=== PATIENT | male | born 1960 | race Caucasian/White ===

== ENCOUNTER 2016-12-05 22:27 | Emergency (ER) | payer BC ==
[~2016-12-05] VITALS: Ht 172.7 cm; Wt 74.8 kg
[~2016-12-05 22:27] MED LIST: AMLODIPINE BESY10 MG PO; ATIVAN1 MG PO; LEVAQUIN 500 M500 M1 PO; LISINOPRIL10 MG PO; NAPROSYN500 MG PO; PROMETHAZINE-C120 ML PO
[2016-12-05 22:35] VITALS: BP 200/88
[2016-12-05 22:57] LABS: ABSOLUTE NEUTROPHILS 5.7 thou/uL (1.4-8.2); HEMATOCRIT 36.5 % (42.0-52.0); HEMOGLOBIN 13.2 gm/dL (14.0-18.0); LYMPHOCYTES 27.9 % (24.0-44.0); MANUAL DIFF NO; MCHC 36.1 g/dL (28.0-37.0); MCV 88.6 fL (80.0-100.0); MONOCYTES 7.9 % (1.0-8.0); PLATELET COUNT 241 thou/uL (150-400); POLYS 62.2 % (36.0-66.0); RBC 4.12 mil/uL (4.50-6.00); RDW 13.1 % (10.5-14.5); WBC 9.2 thou/uL (4.0-11.0)
[2016-12-05 23:00] LABS: CALCIUM 9.1 mg/dL (8.5-10.1); CREATININE 0.8 mg/dL (0.7-1.3)
[2016-12-05 23:06] LABS: ALBUMIN 4.1 g/dL (3.4-5.0); TOTAL BILIRUBIN 0.3 mg/dL (<0.1-1.0); TOTAL PROTEIN 7.5 g/dL (6.4-8.2)
[2016-12-05 23:09] LABS: PROTIME 9.9 Seconds (9.3-11.4)
[2016-12-05 23:14] LABS: APTT 26.6 Seconds (24.5-32.8)
[2016-12-06 03:12] VITALS: BP 152/84
[2016-12-06] MEDS ORDERED: TUSSIONEX PENN473 ML PO (03:41)
== END 2016-12-06 03:48 | disposition home or self-care (01) ==
LOC: ER 22:27 → EROBS 12-06 02:31
PROVIDERS: Emergency Medicine; Nurse Practitioner Family
DX: J44.9 Chronic obstructive pulmonary disease, unspecified (principal); I10 Essential (primary) hypertension; F17.200 Nicotine dependence, unspecified, uncomplicated; F10.99 Alcohol use, unspecified with unspecified alcohol-induced disorder

== ENCOUNTER 2017-07-02 19:08 | Emergency (ER) | payer BC ==
[~2017-07-02] VITALS: Ht 172.7 cm; Wt 74.8 kg
[~2017-07-02 19:08] MED LIST changes: +TUSSIONEX PENN473 ML PO
[2017-07-02] MEDS ORDERED: NORCO 5-325 TA1 EACH PO (20:03)
== END 2017-07-02 20:22 | disposition home or self-care (01) ==
LOC: ER 19:08
DX: M16.11 Unilateral primary osteoarthritis, right hip (principal); M79.672 Pain in left foot; I10 Essential (primary) hypertension

== ENCOUNTER 2018-10-13 10:41 | Emergency (ER) | payer BC ==
[~2018-10-13] VITALS: Ht 172.7 cm; Wt 74.8 kg
[~2018-10-13 10:41] MED LIST changes: +NORCO 5-325 TA1 EACH PO
[2018-10-13] MEDS ORDERED: BACTRIM DS TAB1 EACH PO (11:13)
[2018-10-13] MEDS ORDERED: AMOXICILLIN 50500 MG PO (11:13)
[2018-10-13] MEDS ORDERED: NEOMYC-POLYM-DEX5 ML OPHTHALMIC (11:20)
[2018-10-13 11:25] VITALS: BP 169/88
== END 2018-10-13 11:25 | disposition home or self-care (01) ==
LOC: ER 10:41
DX: L03.213 Periorbital cellulitis (principal); H00.015 Hordeolum externum left lower eyelid; I10 Essential (primary) hypertension; F17.210 Nicotine dependence, cigarettes, uncomplicated

== ENCOUNTER 2020-04-13 13:15 | Emergency (ER) | payer OTHER ==
[~2020-04-13] VITALS: Ht 172.7 cm; Wt 83.9 kg
[~2020-04-13 13:15] MED LIST changes: +AMOXICILLIN 50500 MG PO; +BACTRIM DS TAB1 EACH PO; +NEOMYC-POLYM-DEX5 ML OPHTHALMIC
[2020-04-13] MEDS ORDERED: CLOPIDOGREL75 MG PO (14:07)
[2020-04-13] MEDS ORDERED: CHILDREN'S ASPI81 M1 PO (14:08)
[2020-04-13 15:36] VITALS: BP 133/65
== END 2020-04-13 15:36 | disposition home or self-care (01) ==
LOC: ER 13:15
DX: S61.411A Laceration without foreign body of right hand, initial encounter (principal); I10 Essential (primary) hypertension; F17.210 Nicotine dependence, cigarettes, uncomplicated; Z79.899 Other long term (current) drug therapy; Z79.82 Long term (current) use of aspirin; W25.XXXA Contact with sharp glass, initial encounter; Y93.89 Activity, other specified; Y92.89 Other specified places as the place of occurrence of the external cause; Y99.8 Other external cause status

== ENCOUNTER → 2020-06-12 | Outpatient (CLI) | payer OTHER ==
[~2020-06-12] MED LIST changes: +CHILDREN'S ASPI81 M1 PO; +CLOPIDOGREL75 MG PO; +IBUPROFEN 200200 M1 PO; +LISINOPRIL-HCT1 EAC2 PO; +NORVASC 2.5 MG2.5 M1 PO
== END ==
LOC: HYPER 15:27
PROVIDERS: ATTEND Emergency Medicine
DX: I70.245 Atherosclerosis of native arteries of left leg with ulceration of other part of foot (principal); L97.522 Non-pressure chronic ulcer of other part of left foot with fat layer exposed; I87.311 Chronic venous hypertension (idiopathic) with ulcer of right lower extremity; L97.812 Non-pressure chronic ulcer of other part of right lower leg with fat layer exposed; S80.861D Insect bite (nonvenomous), right lower leg, subsequent encounter; I73.89 Other specified peripheral vascular diseases; Z87.891 Personal history of nicotine dependence; Z96.698 Presence of other orthopedic joint implants; W57.XXXD Bitten or stung by nonvenomous insect and other nonvenomous arthropods, subsequent encounter

== ENCOUNTER → 2020-06-14 | Outpatient (CLI) | payer OTHER | LOC: SJCVCIMAG 13:16 | PROVIDERS: ATTEND Internal Medicine Cardiovascular Disease | DX: I70.203 Unspecified atherosclerosis of native arteries of extremities, bilateral legs (principal); L97.818 Non-pressure chronic ulcer of other part of right lower leg with other specified severity; F17.200 Nicotine dependence, unspecified, uncomplicated; Z95.828 Presence of other vascular implants and grafts ==

== ENCOUNTER → 2020-07-01 | Outpatient (CLI) | payer OTHER ==
[~2020-07-01] VITALS: Ht 172.7 cm; Wt 81.6 kg
[2020-07-01 07:25] VITALS: BP 141/75
[2020-07-01 07:29] LABS: HEMOGLOBIN 13.4 gm/dL (14.0-18.0); MCH 30.4 pg (26.0-34.0); MCHC 35.1 g/dL (28.0-37.0); MCV 86.4 fL (80.0-100.0); RBC 4.4 mil/uL (4.50-6.00); RDW 13.6 % (10.5-14.5)
[2020-07-01 08:09] LABS: CALCIUM 11.2 mg/dL (8.5-10.1); CREATININE 1.2 mg/dL (0.7-1.3)
[2020-07-01 08:16] LABS: POTASSIUM 2.9 mmol/L (3.5-5.1)
== END | disposition home or self-care (01) ==
LOC: CATH 06:47
PROVIDERS: ATTEND Nuclear Medicine Nuclear Cardiology
DX: I70.238 Atherosclerosis of native arteries of right leg with ulceration of other part of lower leg (principal); L97.919 Non-pressure chronic ulcer of unspecified part of right lower leg with unspecified severity; I70.1 Atherosclerosis of renal artery; I10 Essential (primary) hypertension; I25.10 Atherosclerotic heart disease of native coronary artery without angina pectoris; J44.9 Chronic obstructive pulmonary disease, unspecified; K21.9 Gastro-esophageal reflux disease without esophagitis; Z98.890 Other specified postprocedural states; Z79.899 Other long term (current) drug therapy; Z87.891 Personal history of nicotine dependence

== ENCOUNTER → 2020-07-22 | Outpatient (CLI) | payer OTHER | LOC: RAD 15:49 | PROVIDERS: ATTEND Nurse Practitioner | DX: J43.8 Other emphysema (principal) ==

== ENCOUNTER 2021-02-27 12:07 | Emergency (ER) | payer OTHER ==
[~2021-02-27] VITALS: Ht 172.7 cm; Wt 83.9 kg
[2021-02-27 12:15] VITALS: BP 169/81
[2021-02-27] MEDS ORDERED: TRAMADOL 50 MG50 MG PO (12:27)
[2021-02-27] MEDS ORDERED: DOXYCYCLINE 10100 MG PO (12:27)
== END 2021-02-27 12:32 | disposition home or self-care (01) ==
LOC: ER 12:07
DX: L03.116 Cellulitis of left lower limb (principal); M79.605 Pain in left leg; I10 Essential (primary) hypertension; J44.9 Chronic obstructive pulmonary disease, unspecified; I73.9 Peripheral vascular disease, unspecified; K21.9 Gastro-esophageal reflux disease without esophagitis; F17.210 Nicotine dependence, cigarettes, uncomplicated; Z98.890 Other specified postprocedural states; Z79.82 Long term (current) use of aspirin; Z79.1 Long term (current) use of non-steroidal anti-inflammatories (NSAID); Z79.899 Other long term (current) drug therapy

== ENCOUNTER → 2021-03-10 | Outpatient (CLI) | payer OTHER ==
[~2021-03-10] MED LIST changes: +DOXYCYCLINE 10100 MG PO; +TRAMADOL 50 MG50 MG PO
== END ==
LOC: HYPER 09:51
PROVIDERS: ATTEND Emergency Medicine
DX: I70.248 Atherosclerosis of native arteries of left leg with ulceration of other part of lower leg (principal); L97.822 Non-pressure chronic ulcer of other part of left lower leg with fat layer exposed; S81.802A Unspecified open wound, left lower leg, initial encounter; S91.302D Unspecified open wound, left foot, subsequent encounter; I87.2 Venous insufficiency (chronic) (peripheral); I79.8 Other disorders of arteries, arterioles and capillaries in diseases classified elsewhere; Z87.891 Personal history of nicotine dependence; Z96.698 Presence of other orthopedic joint implants; Z79.82 Long term (current) use of aspirin; Z79.899 Other long term (current) drug therapy; W19.XXXA Unspecified fall, initial encounter; W19.XXXD Unspecified fall, subsequent encounter; Y93.89 Activity, other specified; Y92.89 Other specified places as the place of occurrence of the external cause; Y99.8 Other external cause status

== ENCOUNTER → 2021-04-08 | Outpatient (CLI) | payer OTHER | LOC: HYPER 14:27 | PROVIDERS: ATTEND Emergency Medicine | DX: I70.248 Atherosclerosis of native arteries of left leg with ulceration of other part of lower leg (principal); L97.822 Non-pressure chronic ulcer of other part of left lower leg with fat layer exposed; S80.862D Insect bite (nonvenomous), left lower leg, subsequent encounter; I87.2 Venous insufficiency (chronic) (peripheral); Z96.698 Presence of other orthopedic joint implants; Z87.891 Personal history of nicotine dependence; Z79.899 Other long term (current) drug therapy; Z79.82 Long term (current) use of aspirin; W57.XXXD Bitten or stung by nonvenomous insect and other nonvenomous arthropods, subsequent encounter ==

== ENCOUNTER → 2021-04-29 | Outpatient (CLI) | payer OTHER | LOC: HYPER 13:02 | PROVIDERS: ATTEND Emergency Medicine | DX: S81.802D Unspecified open wound, left lower leg, subsequent encounter (principal); L97.822 Non-pressure chronic ulcer of other part of left lower leg with fat layer exposed; I79.8 Other disorders of arteries, arterioles and capillaries in diseases classified elsewhere; I87.2 Venous insufficiency (chronic) (peripheral); Z96.698 Presence of other orthopedic joint implants; Z87.891 Personal history of nicotine dependence; Z79.899 Other long term (current) drug therapy; Z79.82 Long term (current) use of aspirin; X58.XXXD Exposure to other specified factors, subsequent encounter ==